=== PATIENT | female | born 1960 | race Caucasian/White ===

== ENCOUNTER 2020-03-13 14:29 | Outpatient (CLI) | payer BC, SELFPAY ==
--- NOTE | 2020-03-13 14:36 | XR_ITS ---
WS: [id number] WRIST LEFT TECHNIQUE: 3 views of the left wrist CLINICAL INFORMATION: PAIN IN LEFT WRIST COMPARISON: None. FINDINGS: Impacted fracture involving the distal radial metaphysis. Normal alignment on the lateral view. Soft tissue edema. Tiny avulsion at the ulna styloid. Narrowing of the radiocarpal joint. Scaphoid and aris ate appear normal. XR/XR wrist LT min 3V* [id number] IMPRESSION: 1. Impacted fracture involving the distal radial metaphysis with normal alignm ent. 2. Tiny avulsion at the ulna styloid. 3. Soft tissue edema.
== END 2020-03-13 14:30 | disposition home or self-care (01) ==
LOC: RADWPI 14:33
PROVIDERS: Family Provider Nurse Practitioner Family; PCP Nurse Practitioner Family; Visit Provider Nurse Practitioner Family
DX: S52.592A Other fractures of lower end of left radius, initial encounter for closed fracture; S52.612A Displaced fracture of left ulna styloid process, initial encounter for closed fracture; X58.XXXA Exposure to other specified factors, initial encounter; R60.9 Edema, unspecified
CPT/HCPCS: 73110

== ENCOUNTER 2020-09-01 09:49 | Outpatient (CLI) | payer BC, SELFPAY ==
--- NOTE | 2020-09-01 10:06 | XR_ITS ---
WS: [id number] Exam: XR chest 2V* [id number] Date/Time of Exam: 09/01/2020 10:06 AM Reason For Exam: CHRONIC OBSTRUCTIVE PULMONARY DISEASE Comparison 08/17/2018. Findings: The lungs are clear and fully expanded. Costophrenic angles are sharp. No infiltrates. Bronchovascula r relief appears normal. Cardiac silhouette is unremarkable. Bony elements are intact. XR/XR chest 2V* [id number] IMPRESSION: Unremarkable chest radiograph.
== END 2020-09-01 09:50 | disposition home or self-care (01) ==
LOC: RADWPI 09:54
PROVIDERS: Family Provider Nurse Practitioner Family; PCP Nurse Practitioner Family; Visit Provider Nurse Practitioner Family
DX: J44.9 Chronic obstructive pulmonary disease, unspecified (principal)
CPT/HCPCS: 71046

== ENCOUNTER 2021-05-25 10:49 | Outpatient (CLI) | payer OTHER, SELFPAY ==
--- NOTE | 2021-05-25 10:52 | MM_ITS ---
WS: [id number] BILATERAL DIGITAL SCREENING MAMMOGRAPHY WITH CAD CLINICAL INFORMATION: SCREENING HISTORY: Screening mammogram. No current complaints. COMPARISON: April 23, 2019 TECHNIQUE: Bilateral CC and MLO views. FINDINGS: Scattered fibroglandular densities bilaterally. No suspicious focal mass, asymmetry, calcifications, or architectural distortion. No evidence of malignancy. MM/[place] [id number] IMPRESSION: BI-RADS: 1-Negative FOLLOW UP: 1 Year Follow-up Recommend return to annual screening mammography.
== END 2021-05-25 10:50 | disposition home or self-care (01) ==
LOC: RADSHAW 10:51
PROVIDERS: PCP Nurse Practitioner Family; Visit Provider Nurse Practitioner Family
DX: Z12.31 Encounter for screening mammogram for malignant neoplasm of breast (principal)
CPT/HCPCS: 77067

== ENCOUNTER 2021-06-22 09:27 | Outpatient (CLI) | payer OTHER, SELFPAY ==
--- NOTE | 2021-06-22 09:35 | US_ITS ---
WS: [id number] INDICATION: Painful lump right flank TECHNIQUE: Ultrasound soft tissue area of concern FINDINGS: Ultrasound soft tissue area of concern right flank. No evidence of underlying cystic or ranjit id lesion. No drainable fluid collections. No suspicious findings. US/US soft tissue/extremity [id number] IMPRESSION: No suspicious findings in the area of concern.
== END 2021-06-22 09:28 | disposition home or self-care (01) ==
LOC: US 09:29
PROVIDERS: PCP Nurse Practitioner Family; Visit Provider Nurse Practitioner Family
DX: R19.00 Intra-abdominal and pelvic swelling, mass and lump, unspecified site (principal)
CPT/HCPCS: 76882

== ENCOUNTER 2021-07-11 11:23 | Inpatient (IN) | payer OTHER, SELFPAY ==
--- NOTE | 2021-07-11 11:36 | XR_ITS ---
WS: [id number] Portable AP upright chest, 07/11/2021 Clinical Data: cough Comparison: PA and lateral chest, 09/01/2020. Findings: There are patchy bilateral pulmonary opacities consistent with pneumonia. No nodules, fiorella s or effusions are seen. The heart is normal. XR/XR chest 1V portable [id number] Impression: Bilateral patchy pulmonary opacities consistent with pneumonia.
[2021-07-11 13:32] VITALS: BMI 32.8
[2021-07-11 13:38] VITALS: BP 92/55; PULSE 92; RESP 22; TEMP 39.5; O2SAT 92
--- NOTE | 2021-07-11 14:47 | W.ED.SOB ---
HPI - SOB/Dyspnea General: Chief Complaint: Shortness of Breath/Dyspnea Stated Complaint: BLOODY MUCUS WITH COUGH Time Seen by Provider: 07/11/21 14:24 History of Present Illness: MD elicited complaint: shortness of breath and cough Pertinent past history: COPD Onset (ago): day(s) Timing: constant Severity: moderate Exacerbating factors: exertion and coughing Relieving factors: rest Known history of: COPD Associated symptoms: Reports chest congestion, cough, fever(s), hemoptysis and lightheadedness; Deny abdominal pain, chest pain, diaphoresis, dizziness, extremity pain, myalgias, nausea, orthopnea, palpitations, paresthesias, polydipsia, polyuria, rash, sense of impending doom, syncope or vomiting Treatment prior to arrival: none Review of Systems Const: Reports: fever(s); Denies: diaphoresis ENMT: Denies: throat pain, ear or mastoid pain, nasal discharge or nasal congestion Card: Reports: lightheadedness; Denies: chest pain, palpitations, syncope or orthopnea Resp: Reports: hemoptysis and chest congestion GI: Denies: abdominal pain, nausea or vomiting : Denies: flank pain, difficulty voiding, dysuria, urinary frequency or urinary urgency Musc: Denies: extremity pain Skin/Breast: Denies: rash or pruritus Neuro: Denies: dizziness Endo: Denies: polyuria or polydipsia PFSH ED PFSH: Medical History (Updated 07/12/21 @ 12:25 by Glenroy Smith DO) Arthritis CAD (coronary artery disease) She had coronary angiography, which revealed anywhere from 30-40% lesions in the left anterior descending, right and circumflex. This was done in 2007 COPD (chronic obstructive pulmonary disease) Dyslipidemia Fibromuscular dysplasia left renal artery GERD (gastroesophageal reflux disease) Hemorrhoid HTN (hypertension) Hypothyroid IBS (irritable bowel syndrome) Surgical History (Updated 07/12/21 @ 07:52 by Augie Torres MD) H/O oophorectomy Family History (Updated 07/12/21 @ 07:52 by Augie Torres MD) Denies family history of Clotting disorder Chronic kidney disease (CKD) Social History (Updated 07/12/21 @ 07:52 by Augie Torres MD) Smoking and tobacco status: never smoked Alcohol intake: never Substance/Drug Use: never Household members: family Housing: House Physical Exam Const: COMMON NORMALS: no acute distress GENERAL APPEARANCE: cooperative and comfortable ORIENTATION/CONSCIOUSNESS: Yes awake, Yes oriented to person, Yes oriented to place and Yes oriented to time HENMT: COMMON NORMALS: normocephalic, atraumatic and hearing grossly normal bilaterally HEAD & SCALP: normocephalic and atraumatic Neck/C-Spine: COMMON NORMALS: no JVD Resp: AUSCULTATION: crackles and wheezes Cardio: COMMON NORMALS: no JVD, regular rate, regular rhythm and No murmurs present (Cardio) RATE: regular rate RHYTHM: regular rhythm GI: COMMON NORMALS: Soft to palpation and No hepatosplenomegaly present AUSCULTATION: Yes normoactive bowel sounds PALPATION: Yes Soft to palpation, No Tenderness to palpation present (GI), No Guarding due to palpation present (GI) and Yes No hepatosplenomegaly present Extremity: COMMON NORMALS: normal to inspection, capillary refill normal, no clubbing, cyanosis or edema, no calf tenderness and no pedal edema Neuro: SENSORIUM/ORIENTATION: Yes oriented to person, Yes oriented to place and Yes oriented to time Skin: COMMON NORMALS: no rashes or lesions noted GENERAL SKIN EXAM: no rashes or lesions noted Course Vital Signs: Vital signs: Vital Signs Temperature 98.0 F 07/12/21 08:00 Pulse Rate 90 07/12/21 09:19 Respiratory Rate 17 07/12/21 09:19 Blood Pressure 82/35 07/12/21 08:00 Pulse Oximetry 96 07/12/21 09:19 MDM - SOB/Dyspnea MDM Narrative: Medical decision making narrative: Productive cough hyponatremia borderline hypoxia. Patient has had a single dose Covid vaccine. Discussed with hospitalist patient to be admitted orders written. Lab Data: Labs: Lab Results 07/11/21 07/11/21 07/11/21 Range/Units 15:00 15:00 15:00 WBC 17.2 H (4.0-10.0) 10^3/ uL RBC 3.89 L (4.1-5.3) 10^6/u L Hgb 12.4 (11.5-15.3) g/dL Hct 35.0 L (37.0-47.0) % MCV 90.0 (81-99) fl MCH 31.9 (28.0-34.0) pg MCHC 35.4 (30.0-36.0) g/dL RDW 12.5 (12.1-15.1) % Plt Count 145 (130-400) 10^3/c mm MPV 11.0 H (7.4-10.4) fL Neut % (Auto) 86.8 % Lymph % (Auto) 3.6 % Mckean % (Auto) 7.9 % Eos % (Auto) 0.2 % Baso % (Auto) 0.2 % Neut # (Auto) 14.91 H (1.8-7.7) 10^3/u L Lymph # (Auto) 0.6 L (0.8-4.8) 10^3/u L Mckean # (Auto) 1.4 H (0.2-0.9) 10^3/u L Eos # (Auto) 0.0 (0.0-0.8) 10^3/u L Baso # (Auto) 0.0 (0.0-0.1) 10^3/u L Nucleated RBC % (a uto) 0 % Nucleated RBCs # 0.0 /100WBC Sodium 121 L (136-145) mmol/L Potassium 3.5 (3.5-5.1) mmol/L Chloride 84 L (98-107) mmol/L Carbon Dioxide 22 (22-29) mmol/L Anion Gap 18.5 (5-19) BUN 11 (8-23) mg/dL Creatinine 1.1 H (0.5-0.9) mg/dL GFR Calculation 50.3 L (90-130) mL/min Glucose 104 (65-115) mg/dL Calculated Osmolal ity 252 L (285-295) mOsm/k g Lactic Acid 1.1 (0.5-2.2) mmol/L Calcium 8.3 L (8.5-10.5) mg/dL Total Bilirubin 0.8 (0.15-1.2) mg/dL AST 38 H (0-32) U/L ALT 31 (0-33) U/L Alkaline Phosphata se 72 (35-105) IU/L Total Protein 6.6 (6.6-8.7) g/dL Albumin 3.5 (3.5-5.2) g/dL Globulin 3.1 (1.3-4.6) g/dL Procalcitonin (0-0.5) ng/mL 07/11/21 Range/Units 15:00 WBC (4.0-10.0) 10^3/ uL RBC (4.1-5.3) 10^6/u L Hgb (11.5-15.3) g/dL Hct (37.0-47.0) % MCV (81-99) fl MCH (28.0-34.0) pg MCHC (30.0-36.0) g/dL RDW (12.1-15.1) % Plt Count (130-400) 10^3/c mm MPV (7.4-10.4) fL Neut % (Auto) % Lymph % (Auto) % Mckean % (Auto) % Eos % (Auto) % Baso % (Auto) % Neut # (Auto) (1.8-7.7) 10^3/u L Lymph # (Auto) (0.8-4.8) 10^3/u L Mckean # (Auto) (0.2-0.9) 10^3/u L Eos # (Auto) (0.0-0.8) 10^3/u L Baso # (Auto) (0.0-0.1) 10^3/u L Nucleated RBC % (a uto) % Nucleated RBCs # /100WBC Sodium (136-145) mmol/L Potassium (3.5-5.1) mmol/L Chloride (98-107) mmol/L Carbon Dioxide (22-29) mmol/L Anion Gap (5-19) BUN (8-23) mg/dL Creatinine (0.5-0.9) mg/dL GFR Calculation (90-130) mL/min Glucose (65-115) mg/dL Calculated Osmolal ity (285-295) mOsm/k g Lactic Acid (0.5-2.2) mmol/L Calcium (8.5-10.5) mg/dL Total Bilirubin (0.15-1.2) mg/dL AST (0-32) U/L ALT (0-33) U/L Alkaline Phosphata se (35-105) IU/L Total Protein (6.6-8.7) g/dL Albumin (3.5-5.2) g/dL Globulin (1.3-4.6) g/dL Procalcitonin 1.38 H (0-0.5) ng/mL Discharge Plan Discharge Patient Disposition: Admitted As Inpatient Admit Provider: Augie Torres Clinical Impression: Pneumonia, Hypoxia Condition: Stable Coding Level of Care Code ED Legal Operations Manager for g Fwd Exam Comprehensive
--- NOTE | 2021-07-11 14:50 | PC.PHAR ---
pt states she takes care of her own medications-pt states she has been a little confused lately and states she is unsure if she took her am meds today-pt states she takes 12.5mg daily of spironolactone along with spironolactone/hctz 25-25mg-pt states she takes levothyroxine 125mcg po daily except on sat rx was filled for 125mcg daily except on friday-pt states she gets some kind of sinus steroid injection every 3-6 months and is unsure the last time she got it or the name of the medication
[2021-07-11 15:19] LABS: Basophils % 0.2 %; Eosinophils % 0.2 %; Hemoglobin 12.4 g/dL (11.5-15.3); Lymphocytes # 0.6 10^3/uL (0.8-4.8); Lymphocytes % 3.6 %; Mean Corpuscular HGB Conc 35.4 g/dL (30.0-36.0); Mean Corpuscular Hemoglobin 31.9 pg (28.0-34.0); Monocytes # 1.4 10^3/uL (0.2-0.9); Monocytes % 7.9 %; Neutrophils # 14.91 10^3/uL (1.8-7.7); Neutrophils % 86.8 %; Nucleated Red Blood Cells % 0 %; Platelet Count 145 10^3/cmm (130-400); Red Blood Count 3.89 10^6/uL (4.1-5.3); Red Cell Distribution Width 12.5 % (12.1-15.1); White Blood Count 17.2 10^3/uL (4.0-10.0)
[2021-07-11 15:40] LABS: Alanine Aminotransferase 31 U/L (0-33); Albumin Level 3.5 g/dL (3.5-5.2); Alkaline Phosphatase 72 IU/L (35-105); Anion Gap 18.5 (5-19); Aspartate Amino Transferase 38 U/L (0-32); Blood Urea Nitrogen 11 mg/dL (8-23); Calcium 8.3 mg/dL (8.5-10.5); Carbon Dioxide 22 mmol/L (22-29); Chloride 84 mmol/L (98-107); Globulin 3.1 g/dL (1.3-4.6); Glomerular Filtration Rate 50.3 mL/min (90-130); Glucose 104 mg/dL (65-115); Osmolality Calculated 252 mOsm/kg (285-295); Potassium 3.5 mmol/L (3.5-5.1); Sodium 121 mmol/L (136-145); Total Bilirubin 0.8 mg/dL (0.15-1.2); Total Protein 6.6 g/dL (6.6-8.7)
[2021-07-11 15:41] LABS: Lactic Sepsis W/Reflex 1.1 mmol/L (0.5-2.2)
[2021-07-11 15:45] LABS: Creatinine Clr Calc Pharmacy 54.4179
[2021-07-11 15:59] LABS: Slide Review Slide Review Perform
[2021-07-11] MEDS: levofloxacin-dextrose 5 % 750 MG/150 ML PREMIX 100 MG IV (17:12)
[2021-07-11 18:06] VITALS: RESP 17; O2SAT 96
--- NOTE | 2021-07-11 18:49 | PM.HP ---
Providers/Chief Complaint Primary Care Provider: Krystal Levi NP Chief Complaint: BLOODY MUCUS WITH COUGH History of Present Illness Ale Humphrey is a 61 year old female who is vaccinated for COVID-19 presented with chief complaint of lethargy, fatigue and mental fog. Patient was not able to eat because of fatigue lethargy and anorexia. She went to [facility] where Covid antigen was negative however PCR was sent. Because of worsening of her symptoms she decided to come to the ER for further evaluation. She was diagnosed with fever, chest imaging revealed groundglass opacities bilaterally, she had high CRP and leukocytosis, she was treated as PUI and Decadron was initiated. Patient is endorsing fever, night sweats, 15 pounds weight loss, denies previous history of cancer previous Pap smears and colonoscopies were unremarkable. No chest pain active nausea vomiting or diarrhea. In the ER she received Levaquin and fluid IV BMP consistent with hyponatremia,o2 eval done, 2 L on ambulation Review of Systems Const: Reports: fever(s), chills, body aches, change in weight and fatigue Eyes: Denies: change in vision ENMT: Denies: throat pain Card: Denies: chest pain Resp: Reports: dyspnea and non-productive cough GI: Reports: nausea; Denies: abdominal pain : Denies: flank pain Musc: Denies: neck pain Skin/Breast: Denies: rash Neuro: Denies: headache(s) Psych: Reports: anxiety Endo: Denies: polyuria Yaya/Lymph: Denies: easy bruising All/Imm: Denies: urticaria Medications/Allergies Home Medications Medication Instructions Recorded Confirmed Last Taken Type Fish Oil 1 cap PO DAILY 07/11/21 07/11/21 Unknown History acetaminophen [Tylenol] 325 mg PO Q4H PRN 07/11/21 07/11/21 07/11/21 History albuterol sulfate [ProAir HFA] 2 puff INHALATION Q4H PRN 07/11/21 07/11/21 Unknown History allopurinol 300 mg PO DAILY 07/11/21 07/11/21 Unknown History aspirin [Aspir-81] 162 mg PO BEDTIME 07/11/21 07/11/21 Unknown History atenolol 25 mg PO BEDTIME 07/11/21 07/11/21 Unknown History budesonide-formoterol [Symbicort] 2 puff INHALATION BID 07/11/21 07/11/21 Unknown History buspirone [BuSpar] 5 mg PO TID PRN 07/11/21 07/11/21 Unknown History doxycycline hyclate 100 mg PO BID 07/11/21 07/11/21 07/11/21 08:00 History levothyroxine See Rx Instructions .ROUTE .COMPLEX 07/11/21 07/11/21 Unknown History losartan 100 mg PO QAM 07/11/21 07/11/21 Unknown History multivit with min-folic acid 1 tab PO DAILY 07/11/21 07/11/21 Unknown History [Adult Multivitamin Gummies] pravastatin 40 mg PO BEDTIME 07/11/21 07/11/21 Unknown History spironolacton-hydrochlorothiaz 1 tab PO QAM 07/11/21 07/11/21 Unknown History spironolactone 12.5 mg PO DAILY 07/11/21 07/11/21 Unknown History trazodone 50 - 150 mg PO BEDTIME PRN 07/11/21 07/11/21 Unknown History venlafaxine 75 mg PO DAILY 07/11/21 07/11/21 Unknown History Allergies Allergy/AdvReac Type Severity Reaction Status Date / Time Iodinated Contrast Media Allergy ALGY-Rash Verified 07/11/21 14:50 PFSH Acute PFSH: Medical History Arthritis CAD (coronary artery disease) She had coronary angiography, which revealed anywhere from 30-40% lesions in the left anterior descending, right and circumflex. This was done in 2007 COPD (chronic obstructive pulmonary disease) Dyslipidemia Fibromuscular dysplasia left renal artery GERD (gastroesophageal reflux disease) Hemorrhoid HTN (hypertension) Hypothyroid IBS (irritable bowel syndrome) Surgical History H/O oophorectomy Family History Denies family history of Clotting disorder Chronic kidney disease (CKD) Social History Smoking and tobacco status: never smoked Alcohol intake: never Substance/Drug Use: never Household members: family Housing: House Vitals/I&O/Wt Last Vital Signs Temp 103.1 F H 07/11/21 13:38 Pulse 92 07/11/21 13:38 Resp 17 07/11/21 18:06 BP 92/55 07/11/21 13:38 Pulse Ox 96 07/11/21 18:06 Weight last 48 hrs Weight 83.915 kg Physical Exam Narrative: EXAM NARRATIVE: Patient appears stated age Clinically dehydrated Cooperative very pleasant EOMI, PERRLA No neurological deficits S1, S2 sinus rhythm Mild wheezing at the base of the lungs Required 2 L on ambulation Abdomen soft visceral obesity Lower extremity no edema No joint swelling or sign of cellulitis Appropriate mood and affect Data : 07/12/21 05:41 07/12/21 05:41 Micro: Microbiology 07/11/21 18:00 Blood Culture - Preliminary Blood SPECIMEN COLLECTED 07/11/21 18:05 Blood Culture - Preliminary Blood SPECIMEN COLLECTED A&P Assessment and plan (1) Pneumonia: Status: Acute (2) Hypoxia: Status: Acute (3) Hyponatremia: Status: Acute (4) EDMAR (acute kidney injury): Status: Acute Additional A&P Information Sepsis secondary to pneumonia Requested PCR outpatient documentation. We will keep her on Decadron and Levaquin for now, Criteria met with tachypnea tachycardia fever and leukocytosis Procalcitonin high Acute hypoxia related to COVID-19 Patient is vaccinated however symptoms are consistent with COVID-19 pneumonia On ambulation she requires 2 L Acute hyponatremia Secondary to poor p.o. 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
[2021-07-11 19:27] LABS: Procalcitonin 1.38 ng/mL (0-0.5)
[2021-07-11 23:00] VITALS: BMI 33.3
[2021-07-11 23:46] VITALS: BP 98/54; PULSE 83; RESP 17; TEMP 37.6; O2SAT 92
[2021-07-12] VITALS (10 sets, daily range): BP systolic 82–130; BP diastolic 35–81; PULSE 75–90; RESP 16–18; TEMP 36.6–37.2; O2SAT 91–96
[2021-07-12] MEDS: aspirin 81 mg EC Tablet 162 MG PO ×2 (00:19→21:30)
[2021-07-12] MEDS: enoxaparin 40 mg/0.4 mL Syringe SUBCUT ×2 (00:23→22:37)
[2021-07-12] MEDS: sodium chloride 0.9% 1,000 ML 50 ML IV ×2 (00:23→20:23)
[2021-07-12] MEDS: levothyroxine 125 mcg Tablet PO (05:37)
[2021-07-12 06:01] LABS: Basophils % 0.2 %; Eosinophils % 0.1 %; Hematocrit 31.8 % (37.0-47.0); Hemoglobin 11.4 g/dL (11.5-15.3); Lymphocytes # 0.8 10^3/uL (0.8-4.8); Lymphocytes % 7.6 %; Mean Corpuscular HGB Conc 35.8 g/dL (30.0-36.0); Mean Corpuscular Volume 89.3 fl (81-99); Mean Platelet Volume 11.3 fL (7.4-10.4); Monocytes # 0.8 10^3/uL (0.2-0.9); Monocytes % 7.3 %; Neutrophils % 84.1 %; Nucleated Red Blood Cells % 0 %; Platelet Count 143 10^3/cmm (130-400); Red Blood Count 3.56 10^6/uL (4.1-5.3); Red Cell Distribution Width 12.4 % (12.1-15.1); White Blood Count 10.8 10^3/uL (4.0-10.0)
[2021-07-12 06:17] LABS: Alanine Aminotransferase 25 U/L (0-33); Albumin Level 2.9 g/dL (3.5-5.2); Alkaline Phosphatase 56 IU/L (35-105); Anion Gap 14.2 (5-19); Aspartate Amino Transferase 31 U/L (0-32); Blood Urea Nitrogen 11 mg/dL (8-23); C Reactive Protein 304.7 mg/L (0.0-4.9); Calcium 7.9 mg/dL (8.5-10.5); Carbon Dioxide 23 mmol/L (22-29); Chloride 92 mmol/L (98-107); Globulin 2.8 g/dL (1.3-4.6); Glomerular Filtration Rate 72.7 mL/min (90-130); Glucose 87 mg/dL (65-115); Osmolality Calculated 261 mOsm/kg (285-295); Potassium 3.2 mmol/L (3.5-5.1); Sodium 126 mmol/L (136-145); Total Bilirubin 0.4 mg/dL (0.15-1.2); Total Protein 5.7 g/dL (6.6-8.7)
[2021-07-12] MEDS: albuterol 8 gm MDI 2 PUFF INHALATION ×2 (09:12→22:47)
[2021-07-12] MEDS: dexamethasone 4 mg Tablet 6 MG PO (09:59)
[2021-07-12] MEDS: venlafaxine ER (24HR) 75 mg Capsule PO (09:59)
[2021-07-12] MEDS: allopurinol 300 mg Tablet PO (10:02)
--- NOTE | 2021-07-12 10:02 | PC.SOCIAL ---
Results received on rapid COVID as negative. Notified Dr Torres and will have Kristi RICO CM call Than[facility] Scott tomorrow afternoon to check on PCR and request copy once available. Will place rapid result in physical chart.
--- NOTE | 2021-07-12 10:07 | PC.CHAP ---
Pastoral Care Encounter/Spiritual Assessment Type of Contact [] Declined cargo router visit [] Patient/Family/Request visit [] Outpatient visit [] Follow-up visit [] Physician referral [] Code/Alert [] Routine visit [] Staff referral [] Actively dying [] Patient sleeping [] Family support [] [] Out of room [] Palliative care [] [] Receiving care in room [] Pre-surgical visit [] Trauma [] Long length of stay [] ICU visit [x] Other: covid Relational/Emotional Strength [] Patient feels connected with others/family/visitors/staff [] Distress [] Loneliness/isolation [] Abandonment Spirituality of Patient [] Person of [place] [] Attends Catholic of their [place] [] Believes in Prayer [] Reads Bible or Pentecostal materials [] There are Spiritual issues to be addressed Commissary Representative Interventions [] Prayer [] Active listening [] Non-anxious presence [] Spiritual/emotional support [] Crisis/trauma care [] Spiritual counseling [] Bereavement support [] Provided bereavement packet [] Provided Bible/devotional materials [] Provided toy/stuffed animal, coloring book to patient or family member [] Provided Communion [] Anointing/[place] [] Salvation [] Completed spiritual assessment [] Other: Impact on Illness or Injury [] Angry [] Fearful [] Anxious [] Often cries [] Exhaustion [] Unable to work [] Unable to attend yazidism [] Unable to walk/stand [] Unable to read [] Unable to drive [] Unable to eat/drink [] Unable to sleep [] Unable to be with family [] Patient intubated [] Other: Summary covid Time spent with patient 5 mins
[2021-07-12 10:48] LABS: Thyroid Stimulating Hormone 1.93 uIU/mL (0.27-4.20)
--- NOTE | 2021-07-12 13:12 | P.PN_ITS ---
Subjective Subjective: Interval history: Patient saturating well on room air Amy at the bedside Patient is endorsing remarkable recovery in her mood and energy We did talk about night sweats, fever, weight loss colonoscopy and Pap smears which were unremarkable Amy called Kristi who will fax us PCR results by tomorrow Vitals/I&O/Wt Last Vital Signs Temp 98.0 F 07/12/21 08:00 Pulse 90 07/12/21 09:19 Resp 17 07/12/21 09:19 BP 114/60 07/12/21 12:24 Pulse Ox 96 07/12/21 09:19 07/11/21 07/12/21 07/12/21 22:59 06:59 14:59 Intake Total 240 / 240 Output Total 310 / 310 Balance -70 / -70 Weight last 48 hrs Weight 85.457 kg Weight 83.915 kg Physical Exam Narrative: EXAM NARRATIVE: Very pleasant cooperative female S1, S2 no murmur appreciated Visceral obesity Bilateral breath sounds with mild expiratory wheezing at the bases Soft abdomen no signs of peritonitis Lower extremity no edema Clinically looks euvolemic now No neurological deficit EOMI, PERRLA Data : 07/12/21 05:41 07/12/21 05:41 Micro: Microbiology 07/11/21 18:00 Blood Culture - Preliminary Blood SPECIMEN COLLECTED 07/11/21 18:05 Blood Culture - Preliminary Blood SPECIMEN COLLECTED A&P Assessment and plan (1) Hypoxia: Status: Acute (2) Pneumonia: Status: Acute (3) Hyponatremia: Status: Acute (4) EDMAR (acute kidney injury): Status: Acute Additional A&P Information Sepsis Related to pneumonia I would continue Decadron until I see PCR results Continue Levaquin She has high pro calcitonin I would request sputum culture urine antigen Trend CRP and procalcitonin Hyponatremia: Secondary to hydrochlorothiazide and poor p.o. 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
[2021-07-12 14:22] LABS: Procalcitonin 0.99 ng/mL (0-0.5)
[2021-07-12] MEDS: levoFLOXacin 750 mg Tablet PO (17:20)
[2021-07-12] MEDS: atorvastatin 40 mg Tablet 20 MG PO (21:30)
[2021-07-12] MEDS: atenolol 50 mg Tablet 25 MG PO (21:30)
[2021-07-12 22:25] LABS: Add Urine Culture? No; Add Urine Microscopic? YES; Bacteria Urine TRACE /hpf; Bilirubin Urine Neg (Negative); Blood Urine 2+ (Negative); Glucose Urine UA Norm (Normal); Ketones Urine Negative (Negative); Leukocyte Esterase Urine Negative (Negative); Nitrate Urine Negative (Negative); Protein Urine Trace (Negative); RBC Urine 0-4 /hpf (0-2); Squamous Epithelial Cell Urine 0-4 /hpf (0-5); Urine Appearance Clear (CLEAR); Urine Color Yellow (Yellow); Urobilinogen Urine Norm (Negative); WBC Urine 0-4 /hpf (0-5); pH Urine 6.5 (5-7)
[2021-07-13] VITALS (10 sets, daily range): BP systolic 97–128; BP diastolic 58–72; PULSE 53–91; RESP 16–19; TEMP 36.6–36.9; O2SAT 91–98
[2021-07-13 00:12] LABS: Influenza A by IFA Negative (Negative); Influenza B by IFA Negative (Negative)
[2021-07-13] MEDS: levothyroxine 125 mcg Tablet PO (05:10)
[2021-07-13 06:10] LABS: Basophils % 0.2 %; Hematocrit 31.6 % (37.0-47.0); Hemoglobin 10.9 g/dL (11.5-15.3); Lymphocytes # 0.7 10^3/uL (0.8-4.8); Lymphocytes % 5.6 %; Mean Corpuscular HGB Conc 34.5 g/dL (30.0-36.0); Mean Corpuscular Hemoglobin 31.5 pg (28.0-34.0); Mean Corpuscular Volume 91.3 fl (81-99); Mean Platelet Volume 11.4 fL (7.4-10.4); Monocytes # 0.8 10^3/uL (0.2-0.9); Neutrophils # 10.75 10^3/uL (1.8-7.7); Neutrophils % 86.7 %; Nucleated Red Blood Cells % 0 %; Platelet Count 174 10^3/cmm (130-400); Red Blood Count 3.46 10^6/uL (4.1-5.3); Red Cell Distribution Width 12.5 % (12.1-15.1); White Blood Count 12.4 10^3/uL (4.0-10.0)
[2021-07-13 06:26] LABS: Anion Gap 15.6 (5-19); Blood Urea Nitrogen 11 mg/dL (8-23); C Reactive Protein 133.8 mg/L (0.0-4.9); Calcium 7.9 mg/dL (8.5-10.5); Carbon Dioxide 20 mmol/L (22-29); Chloride 95 mmol/L (98-107); Glomerular Filtration Rate 101.3 mL/min (90-130); Glucose 124 mg/dL (65-115); Osmolality Calculated 265 mOsm/kg (285-295); Potassium 3.6 mmol/L (3.5-5.1); Sodium 127 mmol/L (136-145)
[2021-07-13] MEDS: albuterol 8 gm MDI 2 PUFF INHALATION ×3 (09:07→20:55)
[2021-07-13] MEDS: venlafaxine ER (24HR) 75 mg Capsule PO (09:26)
[2021-07-13] MEDS: allopurinol 300 mg Tablet PO (09:27)
[2021-07-13] MEDS: dexamethasone 4 mg Tablet 6 MG PO (09:27)
--- NOTE | 2021-07-13 12:39 | P.PN_ITS ---
Subjective Subjective: Interval history: Patient was seen and examined this morning, she is endorsing feeling better, doing well on room air Her PCR negative has been reported as negative we will go ahead and discontinue Decadron Sodium improving we will decrease fluid rate to 30 cc/h Vitals/I&O/Wt Last Vital Signs Temp 98.4 F 07/13/21 11:10 Pulse 69 07/13/21 11:10 Resp 16 07/13/21 11:10 BP 97/62 07/13/21 11:10 Pulse Ox 96 07/13/21 11:10 07/12/21 07/13/21 07/13/21 22:59 06:59 14:59 Intake Total 1040 / 1040 420 / 1460 Output Total 150 / 150 Balance 1040 / 1040 270 / 1310 Weight last 48 hrs Weight 85.457 kg Weight 83.915 kg Physical Exam Narrative: EXAM NARRATIVE: female in semi-Brandon position Wheezing has improved S1, S2 sinus rhythm Bilateral breath sounds without adventitious rhonchi or crackles Doing well on room air Appropriate mood and energy Abdomen soft nontender bowel sounds present Low symmetry no edema Appropriate mood and affect Data : 07/13/21 05:49 07/13/21 05:49 Micro: Microbiology 07/12/21 16:51 Gram Stain - Final Sputum - Expectorated Sputum 07/12/21 21:39 Legionella Urinary Antigen - Final Urine,Clean Catch 07/12/21 21:39 Bacterial Antigens - Final Urine,Clean Catch 07/11/21 18:00 Blood Culture - Preliminary Blood NEGATIVE TO DATE 07/11/21 18:05 Blood Culture - Preliminary Blood NEGATIVE TO DATE A&P Assessment and plan (1) Hyponatremia: Status: Acute (2) EDMAR (acute kidney injury): Status: Acute (3) Hypoxia: Status: Acute (4) Pneumonia: Status: Acute Additional A&P Information Sepsis secondary to bacterial pneumonia Nurses notified me that PCR result is negative for her Covid She is saturating well on room air I would continue Levaquin procalcitonin is high most likely this is bacterial pneumonia however considering groundglass opacities bilateral appearance I would like to completely make sure that it is not falsely negative would request another PCR, Leukocytosis most likely is due to Decadron which I would hold for next 48 hours Afebrile patient is endorsing feeling better EDMAR: Improved after IV fluid hydration Acute hypoxia: Patient only required 2 L of oxygen during ambulation Will get home O2 evaluation before discharge Essential hypertension: Holding her antihypertensives patient was counseled not to take 2 doses of spironolactone Hyponatremia related to medications discontinue hydrochlorothiazide and spironolactone it is improving with IV fluid hydration Sodium 127 today It has been repleted slowly Full code Cardiac diet Lovenox DVT prophylaxis Attestations Medical Necessity Statement*: Anticipating discharge over the weekend Time Spent in Patient Care: 16 - 35 minutes Coding Level of Care Code 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
--- NOTE | 2021-07-13 12:51 | CTR_ITS ---
PROCEDURE INFORMATION: Exam: CT Chest Without Contrast; Diagnostic Exam date and time: 07/13/2021 12:51 PM Age: 61 years old Clinical indication: Cough; Additional info: Pneumonia TECHNIQUE: Imaging protocol: Diagnostic computed tomography of the chest without contrast. Radiation optimization: All CT scans at this facility use at least one of these dose optimization techniques: automated exposure control; mA and/or kV adjustment per patient size (includes targeted exams where dose is matched to clinical indication); or iterative reconstruction. COMPARISON: CT chest [facility] [id number] 10/12/2018 8:35 AM RADIATION DOSE METRICS: Total DLP (mGy-cm): 884.16 FINDINGS: Lungs: Calcified granuloma in the right lung. Diffuse patchy ground-glass opacities in both lungs, greater in the upper lobes. Dense consolidation in the peripheral right upper lobe. Pleural spaces: Unremarkable. No pneumothorax. No pleural effusion. Heart: Coronary artery calcifications. Aorta: Unremarkable. No aortic aneurysm. Lymph nodes: Prominent mediastinal and hilar lymph nodes are most likely reactive. Calcified right hilar lymph nodes. 3 mm perifissural nodule in the left lower lobe is most likely a lymph node. No follow-up imaging is recommended. Liver: Calcified granulomas in the liver. Spleen: Calcified granulomas in the spleen. Bones/joints: Unremarkable. No acute fracture. Soft tissues: Unremarkable. CT/CT chest [facility] [id number] IMPRESSION: 1. Multilobar ground-glass opacities are suspicious for viral pneumonia. 2. Dense consolidation in the peripheral right upper lobe is suspicious for bacterial pneumonia. Radiation Dose CTDIVOL = (mGy): DLP = 884.16 (mGy-cm)
--- NOTE | 2021-07-13 14:28 | PC.CHAP ---
Pastoral Care Encounter/Spiritual Assessment Type of Contact [] Declined personal lines advisor visit [] Patient/Family/Request visit [] Outpatient visit [] Follow-up visit [] Physician referral [] Code/Alert [] Routine visit [] Staff referral [] Actively dying [] Patient sleeping [] Family support [] [] Out of room [] Palliative care [] [] Receiving care in room [] Pre-surgical visit [] Trauma [] Long length of stay [] ICU visit [xx] Other: Quarantine precautions in place Relational/Emotional Strength [] Patient feels connected with others/family/visitors/staff [] Distress [] Loneliness/isolation [] Abandonment Spirituality of Patient [] Person of [place] [] Attends Jain of their [place] [] Believes in Prayer [] Reads Bible or Pentecostal materials [] There are Spiritual issues to be addressed Die Assembler Interventions [] Prayer [] Active listening [] Non-anxious presence [] Spiritual/emotional support [] Crisis/trauma care [] Spiritual counseling [] Bereavement support [] Provided bereavement packet [] Provided Bible/devotional materials [] Provided toy/stuffed animal, coloring book to patient or family member [] Provided Communion [] Anointing/[place] [] Salvation [] Completed spiritual assessment [] Other: Impact on Illness or Injury [] Angry [] Fearful [] Anxious [] Often cries [] Exhaustion [] Unable to work [] Unable to attend cheondoism [] Unable to walk/stand [] Unable to read [] Unable to drive [] Unable to eat/drink [] Unable to sleep [] Unable to be with family [] Patient intubated [] Other: Summary Time spent with patient
[2021-07-13] MEDS: levoFLOXacin 750 mg Tablet PO (18:11)
--- NOTE | 2021-07-13 18:19 | PC.RESP ---
PULMONARY REHAB INFORMATION SENT TO PATIENT.
[2021-07-13] MEDS: atorvastatin 40 mg Tablet 20 MG PO (20:38)
[2021-07-13] MEDS: atenolol 50 mg Tablet 25 MG PO (20:38)
[2021-07-13] MEDS: aspirin 81 mg EC Tablet 162 MG PO (20:38)
[2021-07-13] MEDS: enoxaparin 40 mg/0.4 mL Syringe SUBCUT (22:54)
[2021-07-14] VITALS (8 sets, daily range): BP systolic 99–152; BP diastolic 62–83; PULSE 61–71; RESP 16–18; TEMP 36.6–37.1; O2SAT 92–98
[2021-07-14] MEDS: sodium chloride 0.9% 1,000 ML 30 ML IV (01:29)
[2021-07-14 05:31] LABS: Basophils % 0.2 %; Hematocrit 32.1 % (37.0-47.0); Hemoglobin 11.3 g/dL (11.5-15.3); Lymphocytes # 1.1 10^3/uL (0.8-4.8); Lymphocytes % 9.3 %; Mean Corpuscular HGB Conc 35.2 g/dL (30.0-36.0); Mean Corpuscular Hemoglobin 31.6 pg (28.0-34.0); Mean Corpuscular Volume 89.7 fl (81-99); Mean Platelet Volume 11.4 fL (7.4-10.4); Monocytes # 0.8 10^3/uL (0.2-0.9); Monocytes % 6.9 %; Neutrophils # 9.71 10^3/uL (1.8-7.7); Neutrophils % 80.2 %; Nucleated Red Blood Cells % 0 %; Platelet Count 206 10^3/cmm (130-400); Red Blood Count 3.58 10^6/uL (4.1-5.3); Red Cell Distribution Width 12.5 % (12.1-15.1); White Blood Count 12.1 10^3/uL (4.0-10.0)
[2021-07-14 06:14] LABS: Anion Gap 14.9 (5-19); Blood Urea Nitrogen 13 mg/dL (8-23); C Reactive Protein 44.9 mg/L (0.0-4.9); Calcium 7.7 mg/dL (8.5-10.5); Carbon Dioxide 20 mmol/L (22-29); Chloride 97 mmol/L (98-107); Glomerular Filtration Rate 101.3 mL/min (90-130); Glucose 110 mg/dL (65-115); Osmolality Calculated 267 mOsm/kg (285-295); Potassium 3.9 mmol/L (3.5-5.1); Sodium 128 mmol/L (136-145)
[2021-07-14 06:16] LABS: Procalcitonin 0.37 ng/mL (0-0.5)
[2021-07-14] MEDS: allopurinol 300 mg Tablet PO (09:18)
[2021-07-14] MEDS: venlafaxine ER (24HR) 75 mg Capsule PO (09:18)
[2021-07-14] MEDS: albuterol 8 gm MDI 2 PUFF INHALATION (10:14)
--- NOTE | 2021-07-14 14:44 | P.DS_ITS ---
Discharge Providers Date of Admission: 07/11/21 23:08 Date of Discharge: July 14, 2021 Attending Provider at Admission: Augie Torres MD Attending Provider at Discharge: Augie Torres MD Primary Care Provider: Krystal Levi NP Diagnoses at Discharge Discharge Diagnosis (1) Hyponatremia: Status: Acute (2) EDMAR (acute kidney injury): Status: Acute (3) Hypoxia: Status: Acute (4) Pneumonia: Status: Acute Reason for Visit Reason for Visit: BLOODY MUCUS WITH COUGH Hospital Course Hospital Course HPI dictated by myself Ale Humphrey is a 61 year old female who is vaccinated for COVID-19 presented with chief complaint of lethargy, fatigue and mental fog. Patient was not able to eat because of fatigue lethargy and anorexia. She went to [facility] where Covid antigen was negative however PCR was sent. Because of worsening of her symptoms she decided to come to the ER for further evaluation. She was diagnosed with fever, chest imaging revealed groundglass opacities bilaterally, she had high CRP and leukocytosis, she was treated as PUI and Decadron was initiated. Patient is endorsing fever, night sweats, 15 pounds weight loss, denies previous history of cancer previous Pap smears and colonoscopies were unremarkable. No chest pain active nausea vomiting or diarrhea. In the ER she received Levaquin and fluid IV BMP consistent with hyponatremia,o2 eval done, 2 L on ambulation Hospital course Patient was admitted for management of shortness of breath and hypoxia on ambulation. Her symptoms improved with Levaquin, CT chest revealed right upper lobe pneumonia, Thanh Scott did fax us her PCR results which was negative for Covid. However due to groundglass opacities evident on CT scan I have requested second PCR. She did not require oxygenation at rest or ambulation. Home O2 evaluation was done as well. She remained afebrile, leukocytosis improved CRP trending down. She is being discharged home with Levaquin. Patient was told about pending Covid PCR results she is eager to go home today, I will add albuterol inhaler for shortness of breath. I have notified Amy as well. EDMAR improved after IV fluid resuscitation, electrolytes improved as well. Influenza antigen negative, bacterial antigens negative blood cultures sterile. Her hyponatremia which was secondary to hydrochlorothiazide use improved gradually and slowly, at the time of admission sodium 121, at the day of discharge 128. Next BMP to be checked on Friday next week. Physical Exam Narrative: EXAM NARRATIVE: female in semi-Brandon position Wheezing has improved S1, S2 sinus rhythm Bilateral breath sounds without adventitious rhonchi or crackles Doing well on room air Appropriate mood and energy Abdomen soft nontender bowel sounds present Low symmetry no edema Appropriate mood and affect Discharge Data Data Completed and Pending: Completed Studies During Hospitalization Category Date Time Status CT chest wo con 7 1250 Routine Cat Scan 07/13/21 12:51 Completed XR chest 1V emperatriz ble [id number] Urgent Exams 07/11/21 11:36 Completed Pending at discharge Category Date Time Status Blood Culture Sta t Lab 07/11/21 18:00 Results [facility] SARS-CoV-2 RNA Routine Lab 07/13/21 14:46 Received Labs from last 24 hours 07/14/21 07/14/21 07/13/21 05:03 05:03 14:46 WBC 12.1 H RBC 3.58 L Hgb 11.3 L Hct 32.1 L MCV 89.7 MCH 31.6 MCHC 35.2 RDW 12.5 Plt Count 206 MPV 11.4 H Neut % (Auto) 80.2 Lymph % (Auto) 9.3 Garrard % (Auto) 6.9 Eos % (Auto) 0.0 Baso % (Auto) 0.2 Neut # (Auto) 9.71 H Lymph # (Auto) 1.1 Garrard # (Auto) 0.8 Eos # (Auto) 0.0 Baso # (Auto) 0.0 Nucleated RBC % (a uto) 0 Nucleated RBCs # 0.0 Sodium 128 L Potassium 3.9 Chloride 97 L Carbon Dioxide 20 L Anion Gap 14.9 BUN 13 Creatinine 0.6 GFR Calculation 101.3 Glucose 110 Calculated Osmolal ity 267 L Calcium 7.7 L C-Reactive Protein 44.9 H Procalcitonin 0.37 SARS-CoV-2 RNA (RT -PCR) Pending Vitals: Last Vital Signs Temp 97.9 F 07/14/21 11:53 Pulse 61 07/14/21 11:53 Resp 16 07/14/21 11:53 BP 99/62 07/14/21 11:53 Pulse Ox 94 07/14/21 11:53 Discharge Plan Discharge Patient Disposition: Home Condition: Stable Prescriptions: New levofloxacin 750 mg Tablet 750 mg PO Q24H 7 Days Qty: 7 RF: 0 albuterol sulfate 90 mcg/actuation HFA aerosol inhaler 2 inh inhalation Q8H PRN (Reason: shortness of breath or wheezing) Qty: 6.7 RF: 1 Continued buspirone 5 mg Tablet 5 mg PO TID PRN (Reason: Anxiety) RF: 0 Tylenol 325 mg Tablet 325 mg PO Q4H PRN (Reason: Pain) RF: 0 venlafaxine 75 mg capsule,extended release 24hr 75 mg PO DAILY RF: 0 trazodone 50 mg tablet 50 - 150 mg PO BEDTIME PRN (Reason: Sleep) RF: 0 atenolol 25 mg Tablet 25 mg PO BEDTIME RF: 0 aspirin 81 mg Tablet,Delayed Release (Dr/Ec) 162 mg PO BEDTIME RF: 0 spironolactone 25 mg tablet 12.5 mg PO DAILY RF: 0 pravastatin 80 mg tablet 40 mg PO BEDTIME RF: 0 levothyroxine 125 mcg tablet See Rx Instructions .ROUTE .COMPLEX RF: 0 allopurinol 300 mg tablet 300 mg PO DAILY RF: 0 ProAir HFA 90 mcg/actuation Hfa Aerosol Inhaler 2 puff INHALATION Q4H PRN (Reason: Shortness Of Breath) RF: 0 losartan 100 mg Tablet 100 mg PO QAM RF: 0 Symbicort 160-4.5 mcg/actuation HFA aerosol inhaler 2 puff INHALATION BID RF: 0 Adult Multivitamin Gummies 200 mcg Tablet,Chewable 1 tab PO DAILY RF: 0 Fish Oil 1 cap PO DAILY RF: 0 Discontinued doxycycline hyclate 100 mg capsule 100 mg PO BID RF: 0 spironolacton-hydrochlorothiaz 25-25 mg tablet 1 tab PO QAM RF: 0 Discharge Orders: Discharge Order (Routine); Ordered 07/14/21 Ordered By: Augie Torres Other Ambulatory Orders: Basic Metabolic Panel (Routine) Timeframe: [id number] Facility: [facility] - Location: Lab - Main Lab Ordered By: Augie Torres Referrals: Krystal Levi NP [Primary Care Provider] - 4-7 days Discharge Diet: Cardiac Discharge Activity: Increase activity as tolerated Patient Instructions: Opioid Safety Activity Restrictions/Additional Instructions: Please take Levaquin for 7 days For low sodium I have discontinued your hydrochlorothiazide spironolactone combination medication for blood pressure. You can take spironolactone as a single drug. If you improve your overall dietary intake your sodium will gradually improve. Second Covid PCR is pending and we will update you with the results your sodium on discharge is 128 I am giving you a prescription for sodium to be checked on Friday next week Your kidney function and potassium improved. Your lung CT scan is consistent with pneumonia right upper lobe. Influenza panel negative Discharge Attestations Time Spent in Discharge Care*: less than 30 min Quality Metrics Clinical Quality Measures During this hospital stay, did patient experience: None Coding Level of Care Code Acute g FW DC note Diagnoses Hyponatremia E87.1 EDMAR (acute kidney injury) N17.9 Hypoxia R09.02 Pneumonia J18.9
[2021-07-14 14:53] LABS: Quest SARS-CoV-2 RNA NOT DETECTED (NOT DETECTED)
--- NOTE | 2021-07-16 13:42 | PC.SOCIAL ---
discharge follow up call made. patient given follow up appointment date and time. patient is waiting for prescriptions to be delivered today. patient denies any questions or concerns.
== END 2021-07-14 17:00 | disposition home or self-care (01) | DRG 871 ==
LOC: ER 15:05 → MEDSURG 23:04
PROVIDERS: Physician Assistant; Admitting Provider Internal Medicine; Emergency Provider Family Medicine; PCP Nurse Practitioner Family; Visit Provider Internal Medicine
DX: A41.9 Sepsis, unspecified organism (principal); J15.9 Unspecified bacterial pneumonia; N17.9 Acute kidney failure, unspecified; J44.0 Chronic obstructive pulmonary disease with (acute) lower respiratory infection; R09.02 Hypoxemia; E86.0 Dehydration; E87.6 Hypokalemia; Z20.822 Contact with and (suspected) exposure to COVID-19; K21.9 Gastro-esophageal reflux disease without esophagitis; M19.90 Unspecified osteoarthritis, unspecified site; I10 Essential (primary) hypertension; E03.9 Hypothyroidism, unspecified; I25.10 Atherosclerotic heart disease of native coronary artery without angina pectoris; Z79.82 Long term (current) use of aspirin; Z98.890 Other specified postprocedural states
CPT/HCPCS: 36415; 71045; 71250; 80048; 80053; 81001; 83605; 84145; 84443; 85025; 86140; 86403; 87040; 87070; 87205; 87449; 87635; 87641; 87804; 94640; 96365; 96372; 99285; J1650; J1956; J3535; J7030; J8540

== ENCOUNTER 2021-07-20 14:15 | Outpatient (CLI) | payer OTHER, SELFPAY ==
[2021-07-20 15:13] LABS: Anion Gap 15.7 (5-19); Blood Urea Nitrogen 11 mg/dL (8-23); Calcium 9.2 mg/dL (8.5-10.5); Carbon Dioxide 26 mmol/L (22-29); Chloride 94 mmol/L (98-107); Glomerular Filtration Rate 56.2 mL/min (90-130); Glucose 79 mg/dL (65-115); Osmolality Calculated 272 mOsm/kg (285-295); Potassium 3.7 mmol/L (3.5-5.1); Sodium 132 mmol/L (136-145)
== END 2021-07-20 14:16 | disposition home or self-care (01) ==
LOC: LAB 14:19
PROVIDERS: PCP Nurse Practitioner Family; Visit Provider Internal Medicine
DX: E87.1 Hypo-osmolality and hyponatremia (principal)
CPT/HCPCS: 36415; 80048

== ENCOUNTER 2021-08-24 13:14 | Outpatient (CLI) | payer OTHER, SELFPAY ==
--- NOTE | 2021-08-24 13:18 | XR_ITS ---
WS: [id number] Chest 2 views, 08/24/2021 Clinical Data: COUGH Comparison: None. Findings: No nodules, masses or effusions are seen. The heart is normal. The pulmonary vascularity is not increased. No pneumothorax is seen. The patchy opacity that was in the left lung has cleared com pletely. There is minimal residual in the right upper lobe. XR/XR chest 2V* [id number] Impression: Minimal patchy opacity residual in the right upper lobe which may represent imp roving pneumonia.
== END 2021-08-24 13:15 | disposition home or self-care (01) ==
PROVIDERS: PCP Nurse Practitioner Family; Visit Provider Nurse Practitioner Family
DX: R05.9 Cough, unspecified (principal)
CPT/HCPCS: 71046

== ENCOUNTER 2022-05-14 10:32 | Outpatient (CLI) | payer OTHER, SELFPAY ==
--- NOTE | 2022-05-14 10:38 | CT_ITS ---
WS: [id number] LDCT LUNG CANCER SCREENING TECHNIQUE: Noncontrast CT of the chest with coronal and sagittal reformatted images. CLINICAL INFORMATION: HX OF TOBACCO USE COMPARISON: CT chest July 13, 2021 DLP: 70.52 mGy.cm DIvol: Mean CTDIvol: 1.60 (mGy) All CT scans at [facility] use at least one of these dose optimization techniques: automat ed exposure control; mA and/or kV adjustment per patient size (includes targeted exams where dose is matched to clinical indication); or iterative reconstruction. FINDINGS: Both lungs are well aerated. Mild chronic emphysematous changes. No acute pulmonary infiltrates. No M ediastinal or hilar lymphadenopathy. Calcified RIGHT hilar nodes. No axillary lymphadenopathy. Normal caliber thoracic aorta. Mild aortic calcification. Mild coronary calcification. Normal caliber descending thoracic aorta. Adrenal glands are normal. Splenic granulomas. No axillary lymphadenopath y. Mild thoracic curve. Disc space narrowing in the lower thoracic spine. CT/CT lung screening [id number] IMPRESSION: LUNG-RADS: 1-Negative FOLLOW UP: 12 Month: Continue annual screening with LDCT
== END 2022-05-14 10:33 | disposition home or self-care (01) ==
LOC: RAD 10:33
PROVIDERS: PCP Nurse Practitioner Family; Visit Provider Nurse Practitioner Family
DX: Z12.2 Encounter for screening for malignant neoplasm of respiratory organs (principal); F17.210 Nicotine dependence, cigarettes, uncomplicated
CPT/HCPCS: 71271

== ENCOUNTER 2022-05-30 07:14 | Day surgery (SDC) | payer OTHER, SELFPAY ==
[2022-05-28 09:21] VITALS: BMI 30.9
[2022-05-30 07:38] VITALS: BP 111/72; PULSE 76; RESP 18; TEMP 36.1; O2SAT 95
[2022-05-30] MEDS: sodium chloride 0.9% 1,000 ML 30 ML IV (07:49)
--- NOTE | 2022-05-30 08:00 | P.HP_ITS ---
Providers/Chief Complaint Chief Complaint: Colon cancer screening, constipation and epigastri History of Present Illness lAe Humphrey is a 62 year old female who is due for a colon cancer screening but also has constipation and epigastric pain. Nothing is changed from her previous H&P Review of Systems General: Reports: 10 or more systems reviewed and unremarkable except in HPI and below Medications/Allergies Home Medications Medication Instructions Recorded Confirmed Last Taken Type Fish Oil 1 cap PO DAILY 07/11/21 05/30/22 05/27/22 History allopurinol 300 mg tablet 300 mg PO DAILY 07/11/21 05/30/22 05/30/22 History aspirin 81 mg tablet,delayed 162 mg PO BEDTIME 07/11/21 05/30/22 05/27/22 History release atenolol 25 mg tablet 25 mg PO BEDTIME 07/11/21 05/30/22 05/29/22 History budesonide-formoterol HFA 160 2 puff inhalation BID 07/11/21 05/30/22 05/27/22 History mcg-4.5 mcg/actuation aerosol inhaler (Symbicort) levothyroxine 125 mcg tablet See Rx Instructions .Route 07/11/21 05/30/22 05/29/22 History .COMPLEX see pharmacy comments losartan 100 mg tablet 100 mg PO QAM 07/11/21 05/30/22 05/30/22 History multivitamin with minerals-folic 1 tab PO DAILY 07/11/21 05/30/22 05/23/22 History acid 200 mcg chewable tablet (Adult Multivitamin Gummies) pravastatin 80 mg tablet 40 mg PO BEDTIME 07/11/21 05/30/22 05/28/22 History spironolactone 25 mg tablet 12.5 mg PO DAILY 07/11/21 05/30/22 05/30/22 History trazodone 50 mg tablet 50 - 150 mg PO BEDTIME PRN Sleep 07/11/21 05/30/22 05/28/22 History venlafaxine 75 mg capsule,extended 75 mg PO DAILY 07/11/21 05/30/22 05/29/22 History release 24 hr albuterol sulfate 90 mcg/actuation 2 inh inhalation Q8H PRN shortness 07/14/21 05/30/22 05/27/22 Rx aerosol inhaler of breath or wheezing #6.7 grams omeprazole 20 mg capsule,delayed 20 mg PO ONCE PRN Heartburn 04/19/22 05/30/22 05/28/22 History release cetirizine 10 mg tablet (Zyrtec) 10 mg PO DAILY 05/28/22 05/30/22 05/29/22 History glucosamine-chondroitin 250 mg-200 1 tab PO BID 05/28/22 05/30/22 05/29/22 History mg tablet (Osteo Bi-Flex) Allergies Allergy/AdvReac Type Severity Reaction Status Date / Time Iodinated Contrast Media Allergy ALGY-Rash Verified 05/30/22 07:33 sulfamethoxazole Allergy ADR-Vomitin Verified 05/30/22 07:33 [From Bactrim] g trimethoprim [From Bactrim] Allergy ADR-Vomitin Verified 05/30/22 07:33 g PFSH Acute PFSH: Medical History Arthritis CAD (coronary artery disease) She had coronary angiography, which revealed anywhere from 30-40% lesions in the left anterior descending, right and circumflex. This was done in 2007 Constipation COPD (chronic obstructive pulmonary disease) Dyslipidemia Fibromuscular dysplasia left renal artery GERD (gastroesophageal reflux disease) Hemorrhoid HTN (hypertension) Hypothyroid IBS (irritable bowel syndrome) Surgical History H/O oophorectomy Right Family History Denies family history of Clotting disorder Chronic kidney disease (CKD) Social History Smoking and tobacco status: current every day smoker Alcohol intake: never Lives independently: Yes Household members: spouse Housing: House Marital status: Current gender identity: Female Vitals/I&O/Wt Last Vital Signs Temp 97.0 F L 05/30/22 07:38 Pulse 76 05/30/22 07:38 Resp 18 05/30/22 07:38 BP 111/72 05/30/22 07:38 Pulse Ox 95 05/30/22 07:38 O2 Del Method 05/30/22 07:38 Weight last 48 hrs Weight 175 lb Physical Exam Narrative: General : Patient is well developed , no acute distress, oriented x3 Head : Normal cephalic, a-traumatic. Ears : Pinnae and external canal are normal. Hearing is normal. Eyes : PERRLA, Sclera and injection are normal. No conjunctival discharge. Nose : Mucous membranes are without erythema. Throat : buccal mucosa is normal, gums are without significant recession or hypertrophy. Lungs : Equal chest rise bilaterally, no use of accessory muscles, trachea is midline. Cor : Rate and rhythm are normal. Abdomen : Soft, ND, NT, no g/r/m Extremities : No edema, no cyanosis or clubbing, dorsalis pedis pulses are present bilaterally, non-tender to palpation of calves. Upper extremities are normal bilaterally. Back : non-tender to palpation, no CVA tenderness. Neuro : CN II - XII intact, Upper and lower extremities have equal and full strength A&P Assessment and plan (1) Epigastric pain: Status: Acute (2) Constipation: Status: Acute (3) Colon cancer screening: Status: Acute Plan EGD Colonoscopy The risks and benefits of the procedure, including bleeding, infection, intestinal perforation requiring surgery, missed lesion, or explained to the patient. He is understanding of the risks and wishes to proceed. Attestations Medical Necessity Statement*: Patient will be discharged home after the procedure Coding Level of Care Code Acute [facility] Coordinator [facility] Fwd Diagnoses Epigastric pain R10.13 Constipation K59.00 Colon cancer screening Z12.11
--- NOTE | 2022-05-30 08:14 | ANES.PREANE2 ---
Pre-Anesthetic Assessment Height/Weight: Height 1.6 m Weight 79.379 kg Temp Pulse Resp BP Pulse Ox O2 Del Method 97.0 F L 76 18 111/72 95 05/30/22 07:38 05/30/22 07:38 05/30/22 07:38 05/30/22 07:38 05/30/22 07:38 05/30/22 07:38 Operation Date: 05/30/22 08:30 Proposed Procedures p 98491 EGD 90220 Colon Z12.11,R11.10(Not Applicable) - DO bridgett Crowe Colonoscopy(Not Applicable) - Greg Banks DO Familial anesthetic complications: None Was Beta Lance taken within 24 hours: Yes Was Clonidine taken within 24 hours: N/A Last intake: Intake Last Liquid Date 05/29/22 Last Liquid Time 23:50 Last Solid Date 05/28/22 Last Solid Time 18:00 Social Tobacco and No alcohol Exam alert, oriented x 3, clear to auscultation bilaterally and regular rate & rhythm Airway Mallampati: Class II Dentition: other (missing teeth) Pulmonary Chronic Obstructive Pulmonary Disease CV/HEM Coronary Artery Disease and Hypertension GI Gastroesophageal Reflux Disease Metabolic Hyperlipidemia and Thyroid Disease Anesthetic Plan ASA status: 3 Anesthesia: MAC Risk of > 500 ml blood loss (7ml/kg in children): No Medications/Allergies Home Medications Medication Instructions Recorded Confirmed Last Taken Type Fish Oil 1 cap PO DAILY 07/11/21 05/30/22 05/27/22 History allopurinol 300 mg tablet 300 mg PO DAILY 07/11/21 05/30/22 05/30/22 History aspirin 81 mg tablet,delayed 162 mg PO BEDTIME 07/11/21 05/30/22 05/27/22 History release atenolol 25 mg tablet 25 mg PO BEDTIME 07/11/21 05/30/22 05/29/22 History budesonide-formoterol HFA 160 2 puff inhalation BID 07/11/21 05/30/22 05/27/22 History mcg-4.5 mcg/actuation aerosol inhaler (Symbicort) levothyroxine 125 mcg tablet See Rx Instructions .Route 07/11/21 05/30/22 05/29/22 History .COMPLEX see pharmacy comments losartan 100 mg tablet 100 mg PO QAM 07/11/21 05/30/22 05/30/22 History multivitamin with minerals-folic 1 tab PO DAILY 07/11/21 05/30/22 05/23/22 History acid 200 mcg chewable tablet (Adult Multivitamin Gummies) pravastatin 80 mg tablet 40 mg PO BEDTIME 07/11/21 05/30/22 05/28/22 History spironolactone 25 mg tablet 12.5 mg PO DAILY 07/11/21 05/30/22 05/30/22 History trazodone 50 mg tablet 50 - 150 mg PO BEDTIME PRN Sleep 07/11/21 05/30/22 05/28/22 History venlafaxine 75 mg capsule,extended 75 mg PO DAILY 07/11/21 05/30/22 05/29/22 History release 24 hr albuterol sulfate 90 mcg/actuation 2 inh inhalation Q8H PRN shortness 07/14/21 05/30/22 05/27/22 Rx aerosol inhaler of breath or wheezing #6.7 grams omeprazole 20 mg capsule,delayed 20 mg PO ONCE PRN Heartburn 04/19/22 05/30/22 05/28/22 History release cetirizine 10 mg tablet (Zyrtec) 10 mg PO DAILY 05/28/22 05/30/22 05/29/22 History glucosamine-chondroitin 250 mg-200 1 tab PO BID 05/28/22 05/30/22 05/29/22 History mg tablet (Osteo Bi-Flex) Allergies Allergy/AdvReac Type Severity Reaction Status Date / Time Iodinated Contrast Media Allergy ALGY-Rash Verified 05/30/22 07:33 sulfamethoxazole Allergy ADR-Vomitin Verified 05/30/22 07:33 [From Bactrim] g trimethoprim [From Bactrim] Allergy ADR-Vomitin Verified 05/30/22 07:33 g Current Medications Generic Name Dose Route Start Last Admin Trade Name Freq PRN Reason Stop Dose Admin Sodium Chloride 1,000 mls @ 30 mls/hr 05/30/22 07:30 05/30/22 07:49 Sodium Chloride 0.9% IV 05/31/22 07:29 30 mls/hr .Q24H BRANDIN Administration PFSH Anesthesia Medical History Arthritis CAD (coronary artery disease) She had coronary angiography, which revealed anywhere from 30-40% lesions in the left anterior descending, right and circumflex. This was done in 2007 Constipation COPD (chronic obstructive pulmonary disease) Dyslipidemia Fibromuscular dysplasia left renal artery GERD (gastroesophageal reflux disease) Hemorrhoid HTN (hypertension) Hypothyroid IBS (irritable bowel syndrome) Surgical History H/O oophorectomy Right Family History Denies family history of Clotting disorder Chronic kidney disease (CKD) Social History Smoking and tobacco status: current every day smoker Alcohol intake: never Lives independently: Yes Household members: spouse Housing: House Marital status: Current gender identity: Female Data Anesthesia Cardiac Studies: No Data to Display
[2022-05-30 09:05] VITALS: BP 91/57; PULSE 63; RESP 16; TEMP 36.1; O2SAT 95
[2022-05-30 09:10] VITALS: BP 103/69; PULSE 66; RESP 18; O2SAT 92
--- NOTE | 2022-05-30 12:47 | ANE.PACU2 ---
Inpatient post-anesthesia follow up: Airway intact: Yes Vital signs: Temperature 97.0 F Pulse Rate 66 Respiratory Rate 18 Blood Pressure 103/69 Pulse Oximetry 92 Oxygen Delivery Me thod Room Air Oxygen Flow Rate Fraction of Inspir ed Oxygen Hydration adequate: Yes Nausea and vomiting: No Pain level: 1 Mental status: Baseline
== END 2022-05-30 09:28 | disposition home or self-care (01) ==
PROVIDERS: Visit Provider Surgery
PROC: 0DJ08ZZ Inspection of Upper Intestinal Tract, Via Natural or Artificial Opening Endoscopic (ICD-10-PCS; CPT 43235; principal; 2022-05-30 08:30)
PROC: 0DJD8ZZ Inspection of Lower Intestinal Tract, Via Natural or Artificial Opening Endoscopic (ICD-10-PCS; CPT 45378; 2022-05-30 08:30)
DX: Z12.11 Encounter for screening for malignant neoplasm of colon (principal); R11.10 Vomiting, unspecified; K57.30 Diverticulosis of large intestine without perforation or abscess without bleeding; J44.9 Chronic obstructive pulmonary disease, unspecified; I25.10 Atherosclerotic heart disease of native coronary artery without angina pectoris; I10 Essential (primary) hypertension; K21.9 Gastro-esophageal reflux disease without esophagitis; E78.5 Hyperlipidemia, unspecified; Z79.82 Long term (current) use of aspirin; M19.90 Unspecified osteoarthritis, unspecified site; F17.210 Nicotine dependence, cigarettes, uncomplicated; E03.9 Hypothyroidism, unspecified
CPT/HCPCS: 43235; 45378; J2370; J2704; J7030

== ENCOUNTER → 2022-08-09 07:56 | Outpatient (BNVA) | payer OTHER, SELFPAY | PROVIDERS: PCP Family Medicine Adult Medicine; Visit Provider Family Medicine Adult Medicine | DX: E03.9 Hypothyroidism, unspecified (principal); E78.5 Hyperlipidemia, unspecified; I10 Essential (primary) hypertension; M10.9 Gout, unspecified; M19.90 Unspecified osteoarthritis, unspecified site | CPT/HCPCS: 80053; 80061; 84443; 84550; 85025; 86140 ==

== ENCOUNTER 2022-10-09 16:38 | Outpatient (CLI) | payer OTHER, SELFPAY ==
--- NOTE | 2022-10-09 16:52 | XR_ITS ---
WS: [id number] EXAMINATION: XR hand LT 2V 12060 REASON FOR EXAM: Fall on Left hand. COMPARISON: None available. ORDER DATE: 10/09/2022 4:53 PM FINDINGS: There is a healing fracture of the midshaft of the fifth metacarpal with slight volar angular deformi ty of approximately 15 degrees on the lateral view. There is diffuse osteoarthritic changes within in ner phalangeal joint space narrowing and marginal osteophytes. There are no specific soft tissue abno rmalities. XR/XR hand LT 2V [id number] IMPRESSION: Healing fifth metacarpal fracture. Diffuse changes of osteoarthritis.
== END 2022-10-09 16:39 | disposition home or self-care (01) ==
PROVIDERS: PCP Family Medicine; Visit Provider Family Medicine
DX: M79.642 Pain in left hand (principal); W19.XXXA Unspecified fall, initial encounter; S62.307A Unspecified fracture of fifth metacarpal bone, left hand, initial encounter for closed fracture
CPT/HCPCS: 73120

== ENCOUNTER → 2022-10-18 06:55 | Outpatient (BNVA) | payer OTHER, SELFPAY | PROVIDERS: PCP Family Medicine; Referring Provider Family Medicine; Visit Provider Student in an Organized Health Care Education/Training Program | DX: S62.327A Displaced fracture of shaft of fifth metacarpal bone, left hand, initial encounter for closed fracture (principal); X58.XXXA Exposure to other specified factors, initial encounter | CPT/HCPCS: 73130 ==

== ENCOUNTER 2022-10-18 07:50 | Outpatient (CLI) | payer OTHER, SELFPAY | END 2022-10-18 07:51 | disposition home or self-care (01) | LOC: SPT 07:51 | PROVIDERS: PCP Family Medicine; Visit Provider Student in an Organized Health Care Education/Training Program | DX: Z46.89 Encounter for fitting and adjustment of other specified devices (principal); S62.308S Unspecified fracture of other metacarpal bone, sequela; X58.XXXS Exposure to other specified factors, sequela | CPT/HCPCS: 97760; L3984 ==

== ENCOUNTER 2022-10-30 07:42 | Outpatient (CLI) | payer OTHER, SELFPAY ==
--- NOTE | 2022-10-30 07:56 | MM_ITS ---
WS: [id number] Bilateral screening 3D tomosynthesis digital mammogram, 10/30/2022 Clinical Data: Screening for malignant neoplasm breast. Comparison: 05/25/2021, 04/23/2019, 09/03/2017, 02/09/2016, 11/29/2014, 03/05/2013, 11/11/2011, 06/29/2010, 2008, 09/30/2006. Findings: The breast parenchymal pattern shows fibroglandular tissue No spiculated masses or clustered calcific ations are seen. There are no secondary signs of carcinoma. MM/[place] [id number] Impression: 1. Negative bilateral mammogram unchanged. 2. Recommend annual screening mammograms. BIRADS: 1-Negative FOLLOW UP: 1 Year Follow-up The CAD shipping checker was used.
== END 2022-10-30 07:43 | disposition home or self-care (01) ==
LOC: RAD 07:45
PROVIDERS: PCP Family Medicine; Visit Provider Family Medicine
DX: Z12.31 Encounter for screening mammogram for malignant neoplasm of breast (principal)
CPT/HCPCS: 77063; 77067

== ENCOUNTER → 2022-11-01 07:35 | Outpatient (BNVA) | payer OTHER, SELFPAY | PROVIDERS: PCP Family Medicine; Visit Provider Student in an Organized Health Care Education/Training Program | DX: S62.307A Unspecified fracture of fifth metacarpal bone, left hand, initial encounter for closed fracture (principal); X58.XXXA Exposure to other specified factors, initial encounter | CPT/HCPCS: 73130 ==

== ENCOUNTER → 2022-11-29 14:39 | Outpatient (BNVA) | payer OTHER, SELFPAY | PROVIDERS: PCP Family Medicine; Visit Provider Student in an Organized Health Care Education/Training Program | DX: S62.307A Unspecified fracture of fifth metacarpal bone, left hand, initial encounter for closed fracture (principal); X58.XXXA Exposure to other specified factors, initial encounter | CPT/HCPCS: 73130 ==

== ENCOUNTER → 2023-05-23 10:22 | Outpatient (BNVA) | payer OTHER, SELFPAY | PROVIDERS: PCP Family Medicine; Visit Provider Student in an Organized Health Care Education/Training Program | DX: M17.0 Bilateral primary osteoarthritis of knee (principal) | CPT/HCPCS: 73560; 73565 ==

== ENCOUNTER → 2023-06-24 08:31 | Outpatient (BNVA) | payer OTHER, SELFPAY | PROVIDERS: PCP Family Medicine; Visit Provider Student in an Organized Health Care Education/Training Program | DX: M75.41 Impingement syndrome of right shoulder | CPT/HCPCS: 73030 ==

== ENCOUNTER → 2023-09-16 13:58 | Outpatient (BNVA) | payer OTHER, SELFPAY | PROVIDERS: PCP Family Medicine; Visit Provider Family Medicine | DX: R79.89 Other specified abnormal findings of blood chemistry (principal); E03.9 Hypothyroidism, unspecified; E78.5 Hyperlipidemia, unspecified; I10 Essential (primary) hypertension | CPT/HCPCS: 80053; 80061; 82306; 84439; 84443; 85025 ==

== ENCOUNTER 2024-02-12 09:44 | Outpatient (CLI) | payer BC, SELFPAY ==
[2024-02-12 10:20] VITALS: BMI 32.9
--- NOTE | 2024-02-12 10:26 | NMCV_ITS ---
NM maty perf SPECT r/s* [id number] Ale Humphrey Age: 63 Gender: F : 1960 Exam Date: 02/12/2024 10:49 Ordering Phys: Noman Plaza DO Technologist: RENAY Alberto Exam Location: [facility] Indications: SHORTNESS OF BREATH STRESS TEST Please see separate stress test report in [facility] for full findings IMAGE PROTOCOL Rest/Stress 1 Lexiscan Day Radiopharmaceutical Dose (mCi) Administration Site Administered by Rest: Tc-99m 10.4 IV RENAY Alberto Sestamibi Stress:Tc-99m 32.8 IV RENAY Jeronimo Sestamibi Rest: 12-Feb-2024 60 Discovery 630 Stress: 12-Feb-2024 30 Discovery 630 0.4mg Lexiscan. Images obtained in supine and prone position. SPECT RESULTS Technical Quality: Excellent Raw Data Analysis: Normal Image Corrections: No attenuation or motion correction applied Summed Stress Score: 1 Summed Rest Score: 0 Summed Difference Score: 1 PERFUSION FINDINGS SPECT images demonstrate homogeneous tracer distribution throughout the myocardium. FUNCTIONAL RESULTS (calculated via Gated SPECT) Stress Image LV EF (%): 74 Stress EDV (mL):84 TID: 1.15 Stress ESV (mL):22 FUNCTIONAL FINDINGS: There is normal left ventricular systolic function. IMPRESSIONS 1. Normal myocardial perfusion imaging with no evidence of ischemia 2. LV systolic function is normal Abdelrahman Avilez MD (Electronically Signed) Final Date: 14 February 2024 14:23 S
--- NOTE | 2024-02-12 10:26 | ECG_ITS ---
[facility] Test Date: 2024-02-12 Pat Name: Ale Humphrey Department: Room: Gender: Female Assistant Community Manager: : 1960 Requested By: Noman Biggs Order Number: [id number] Zena MD: Abdelrahman Avilez M.D. Interpretive Statements NAME OF STUDY: LEXISCAN SESTAMIBI STRESS TEST INDICATION: [Chest Pain; Shortness of Breath] Procedure: At the baseline, the blood pressure was 141/81 mmHg with a heart rate of 61 bpm. The electrocardiogram showed normal sinus rhythm, normal axis with normal ST and T's. The Lexiscan was infused over a period of 20 seconds. A total of 0.4 mg of Lexiscan was infused. The stress phase was continued for a total of 5 minutes. Heart rate was at the end of stress phase was 76 bpm and a blood pressure of 130/68 mmHg. The EKG at the peak infusion revealed normal sinus rhythm with no significant ST-T wave changes. Sestamibi was injected 20 seconds after the Lexiscan infusion. Blood pressure at the end of recovery phase was 131/60 mmHg with a heart rate of 73 bpm. Conclusion: 1. Normal EKG response to Lexiscan infusion 2. No Lexiscan induced chest pain or cardiac arrhythmia. 3. Normal blood pressure and heart rate response. 4. Sestamibi/sestamibi perfusion scan pending; see separate report. Electronically Signed On 02-19-2024 12:43:46 CDT by Abdelrahman Avilez M.D. [id number]
[2024-02-12] MEDS: regadenoson 0.4 Mg/5 ml Syringe 0.400000000000000022 MG IVP (11:31)
[2024-02-12 12:38] VITALS: BP 156/84; PULSE 61
== END 2024-02-12 09:45 | disposition home or self-care (01) ==
PROVIDERS: PCP Family Medicine; Visit Provider Family Medicine
DX: R06.09 Other forms of dyspnea (principal)
CPT/HCPCS: 36415; 78452; 93017; 96374; A9500; J2785

== ENCOUNTER 2024-02-27 13:02 | Outpatient (CLI) | payer BC, SELFPAY ==
--- NOTE | 2024-02-27 13:11 | MM_ITS ---
WS: [id number] BILATERAL 3D TOMOSYNTHESIS DIGITAL SCREENING MAMMOGRAPHY WITH CAD CLINICAL INFORMATION: SCREENING HISTORY: Screening mammogram. No current complaints. COMPARISON: 2021 TECHNIQUE: Bilateral CC and MLO views. FINDINGS: Scattered fibroglandular densities bilaterally. No suspicious focal mass, asymmetry, calcifications, or architectural distortion. No evidence of malignancy. IMPRESSION: MM/[place] [id number] BI-RADS: 1-Negative FOLLOW UP: 1 Year Follow-up Recommend return to annual screening mammography.
== END 2024-02-27 13:03 | disposition home or self-care (01) ==
LOC: RAD 13:02
PROVIDERS: PCP Family Medicine; Visit Provider Family Medicine
DX: Z12.31 Encounter for screening mammogram for malignant neoplasm of breast (principal); R92.323 Mammographic fibroglandular density, bilateral breasts
CPT/HCPCS: 77063; 77067

== ENCOUNTER → 2024-03-15 08:04 | Outpatient (BNVA) | payer MEDICARE, SELFPAY | PROVIDERS: PCP Family Medicine; Visit Provider Podiatrist Foot & Ankle Surgery | DX: Q66.71 Congenital pes cavus, right foot (principal); Q66.72 Congenital pes cavus, left foot; M19.072 Primary osteoarthritis, left ankle and foot; M19.071 Primary osteoarthritis, right ankle and foot | CPT/HCPCS: 73630; 99203 ==

== ENCOUNTER → 2024-04-05 08:30 | Outpatient (BNVA) | payer MEDICARE, SELFPAY | PROVIDERS: PCP Family Medicine; Visit Provider Podiatrist Foot & Ankle Surgery | DX: M19.071 Primary osteoarthritis, right ankle and foot (principal); M19.072 Primary osteoarthritis, left ankle and foot | CPT/HCPCS: 99213 ==

== ENCOUNTER → 2024-06-07 11:19 | Outpatient (BNVA) | payer MEDICARE, OTHER, SELFPAY | PROVIDERS: PCP Family Medicine; Visit Provider Family Medicine | DX: I10 Essential (primary) hypertension (principal); E78.5 Hyperlipidemia, unspecified; E03.9 Hypothyroidism, unspecified; E55.9 Vitamin D deficiency, unspecified; R79.89 Other specified abnormal findings of blood chemistry | CPT/HCPCS: 80053; 80061; 82306; 82607; 83036; 84439; 84443; 85025 ==

== ENCOUNTER 2025-02-28 12:36 | Outpatient (CLI) | payer MEDICARE, OTHER, SELFPAY ==
--- NOTE | 2025-02-28 12:44 | MM_ITS ---
WS: [id number] BILATERAL 3D TOMOSYNTHESIS DIGITAL SCREENING MAMMOGRAPHY WITH CAD CLINICAL INFORMATION: SCREENING HISTORY: Screening mammogram. No current complaints. COMPARISON: 2023 TECHNIQUE: Bilateral CC and MLO views. FINDINGS: Scattered fibroglandular densities bilaterally. No suspicious focal mass, asymmetry, calcifications, or architectural distortion. No evidence of malignancy. MM/MM scr BI tomosynthesis [id number] IMPRESSION: DENSITY: There are scattered areas of fibroglandular density. BI-RADS: 1 - Negative. FOLLOW UP: 1 Year Follow-up Recommend return to annual screening mammography.
== END 2025-02-28 12:37 | disposition home or self-care (01) ==
PROVIDERS: PCP Family Medicine; Visit Provider Family Medicine
DX: Z12.31 Encounter for screening mammogram for malignant neoplasm of breast (principal); R92.323 Mammographic fibroglandular density, bilateral breasts
CPT/HCPCS: 77063; 77067

== ENCOUNTER → 2025-08-10 13:03 | Outpatient (BNVA) | payer MEDICARE, OTHER, SELFPAY | PROVIDERS: PCP Family Medicine; Visit Provider Podiatrist Foot & Ankle Surgery | DX: M19.072 Primary osteoarthritis, left ankle and foot (principal) | CPT/HCPCS: 99213 ==